=== PATIENT | female | born 1950 | race Caucasian/White ===

== ENCOUNTER 2016-05-28 14:24 | Outpatient (CLI) | payer BC ==
[2016-05-28] MEDS ORDERED: GADOBUTROL 7.5 MMOL/7.5 ML VIAL IVP ONE (15:37)
== END 2016-05-28 14:25 | disposition home or self-care (01) ==
DX: R47.01 Aphasia (principal); I67.82 Cerebral ischemia
CPT/HCPCS: 36415; 70553; 80053; A9585

== ENCOUNTER 2016-06-17 16:43 | Outpatient (CLI) | payer BC | END 2016-06-17 16:44 | disposition home or self-care (01) | DX: R47.01 Aphasia (principal); E78.00 Pure hypercholesterolemia, unspecified; R73.9 Hyperglycemia, unspecified ==